=== PATIENT | male | born 1995 ===

== ENCOUNTER → 2018-03-22 | Outpatient (CLI) | payer OTHER ==
[2018-03-22 08:20] LABS: PLATELET COUNT, AUTOMATED 193 K/uL (150-450)
== END ==
LOC: LAB 07:35
DX: F64.0 Transsexualism (principal)
CPT/HCPCS: 36415; 82040; 82247; 82310; 82374; 82435; 82565; 82947; 84075; 84132; 84155; 84295; 84403; 84450; 84460; 84520; 85025

== ENCOUNTER → 2018-11-01 | Outpatient (CLI) | payer OTHER ==
[2018-11-01 09:14] LABS: PLATELET COUNT, AUTOMATED 211 K/uL (150-450)
== END ==
LOC: LAB 08:12
PROVIDERS: ATTEND Family Medicine
DX: F64.0 Transsexualism (principal)
CPT/HCPCS: 36415; 82040; 82247; 82310; 82374; 82435; 82565; 82947; 84075; 84132; 84155; 84270; 84295; 84403; 84450; 84460; 84520; 85025